=== PATIENT | male | born 1995 ===

== ENCOUNTER 2020-10-03 11:22 | Outpatient (REF) | payer MEDICAID, SELFPAY ==
[2020-10-03 12:13] LABS: Amphetamine Screen Urine Not Detected (Not Detect); Cannabinoid Screen Urine Not Detected (Not Detect); Cocaine Screen Urine Not Detected (Not Detect); Opiate Screen Urine Not Detected (Not Detect); Phencyclidine Screen Urine Not Detected (Not Detect)
== END 2020-10-03 11:23 | disposition home or self-care (01) ==
LOC: HO.LNP 11:22
PROVIDERS: Visit Provider Internal Medicine
DX: Z02.1 Encounter for pre-employment examination (principal)
CPT/HCPCS: 80307

== ENCOUNTER 2024-06-30 09:16 | Outpatient (AMB) | payer OTHER, SELFPAY ==
[2024-06-30 09:18] VITALS: BP 129/74; PULSE 103; O2SAT 98; BMI 26.4
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
== END 2024-06-30 10:05 | disposition home or self-care (01) ==
PROVIDERS: PCP Nurse Practitioner Primary Care; Visit Provider Registered Nurse Emergency
DX: G82.20 Paraplegia, unspecified (principal); G89.4 Chronic pain syndrome; Z79.891 Long term (current) use of opiate analgesic
CPT/HCPCS: 99204; G2211

== ENCOUNTER → 2024-06-30 09:16 | Outpatient (BNVA) | payer OTHER, MEDICAID, SELFPAY | PROVIDERS: PCP Nurse Practitioner Primary Care; Visit Provider Registered Nurse Emergency | DX: G82.20 Paraplegia, unspecified (principal); G89.4 Chronic pain syndrome; M54.9 Dorsalgia, unspecified; F11.90 Opioid use, unspecified, uncomplicated | CPT/HCPCS: 99202 ==

== ENCOUNTER 2024-08-06 10:35 | Outpatient (REF) | payer OTHER, SELFPAY | END 2024-08-06 10:36 | disposition home or self-care (01) | LOC: HO.MRI 10:35 | PROVIDERS: PCP Nurse Practitioner Primary Care; Visit Provider Registered Nurse Emergency | DX: M54.9 Dorsalgia, unspecified (principal); G89.29 Other chronic pain | CPT/HCPCS: 72146; 72148 ==

== ENCOUNTER 2024-09-14 19:55 | Emergency (ER) | payer OTHER, SELFPAY ==
[2024-09-14 20:07] VITALS: BP 120/63; BP 140/90; PULSE 120; PULSE 92; RESP 14; TEMP 37.6; O2SAT 99; BMI 27.2
--- NOTE | 2024-09-14 20:28 | ECG_ITS ---
Test Reason : NAUSEA Blood Pressure : */* mmHG Vent. Rate : 100 BPM Atrial Rate : 100 BPM P-R Int : 120 ms QRS Dur : 102 ms QT Int : 324 ms P-R-T Axes : 42 -2 24 degrees QTcB Int : 417 ms Normal sinus rhythm Normal ECG No previous ECGs available Referred By: Generic ED Physician Electronically Signed By: RONI JOHNSON
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
--- OUTSIDE RECORDS SUMMARY | 2024-09-14 20:52 | XMS_ITS | Encounter Summary ---
Author Organization [facility] Address [address] [place] [address] Care Team Providers Care Cook Night Name Role Phone Patient, Has No Pcp Or Ref Primary Care Provider Unavailable Encounter Details Date Type Department Care Team (Late st Contact Info) Description 01/14/2021 Documentation [facility] Case Management Department [address] [place] [id number] Virginia Cueto RN Social History Tobacco Use Types Packs/Day Years Used Date Smoking Tobacco: Never Smokeless Tobacco: Never Alcohol Use Standard Drinks/Week Comments Yes 0 (1 standard drink = 0.6 oz pur e alcohol) Intrmittently, not daily Sex and Gender Information Value Date Recorded Sex Assigned at Not on file Legal Sex Male 11:25 PM EDT Gender Identity Not on file Sexual Orientation Not on file documented as of this encounter Miscellaneous Notes * Plan of Care - Virginia Soares RN BSN - 01/16/2021 1:55 PM EDT Case Management Discharge note: Pertinent Clinical and medical Pt discussed in MD rounds. Pt medically cleared for dc to acute rehab per Tomasz Underwood NP. Final Discharge Plan Bed offer from [facility], [place], [place]. Pt has accepted the bed offer. Transport via ambulance scheduled for 11am. All parties notified and aware including pts mother Afshan and father LuisSr. Visitor policy relayed to pts mother and father and both verbalized understanding. Discs/imagessent with pt in green envelope per [facility] request. Discharge summary faxed to [place] [phone] per [facility] request. * Plan of Care - Virginia Cueto RN - 01/14/2021 4:48 PM EDT Case Management Continued Stay Review: Pertinent Clinical impacting hospitalization, level of care update, if indicated Pt discussed in MDR. Per Axel Underwood NP, pt should be ready to be D/C'd tomorrow. IVC removal today. Discharge Planning [facility]. CM to follow. documented in this encounter Plan of Treatment Not on file documented as of this encounter Visit Diagnoses Not on filedocumented in this encounter Care Teams Cook Night Relationship Specialty Start Date End Date Patient, Has No Pcp Or Ref DO NOT EDIT THIS RECORD VIA PROVIDER ON THE FLY PCP - General Film Writer 03/19/21 documented as of this encounter
--- OUTSIDE RECORDS SUMMARY | 2024-09-14 20:52 | XMS_ITS | Clinical Summary ---
Author Organization [facility] Address [address] [place] [address] Care Team Providers Care Industrial Garage Servicer Name Role Phone Unknown Primary Care Provider [phone] Social History Tobacco Use Types Packs/Day Years Used Date Smoking Tobacco: Never Assessed Sex and Gender Information Value Date Recorded Sex Assigned at Not on file Gender Identity Not on file Sexual Orientation Not on file Plan of Treatment Health Maintenance Due Date Last Done Comments Hepatitis C Virus Screening 1995 HIV Screening 11/30/2008 DTaP/Tdap/Td Vaccines (1 - Tdap) 11/30/2014 Hepatitis B Vaccines (1 of 3 - 19+ 3-dose series) 11/30/2014 Influenza Vaccine 03/16/2024 COVID-19 Vaccine (2023-2 5 season) 2024 HPV Vaccines Aged Out No longer eligi ble based on patient's age to complete this topic Pneumococcal Vaccine: Pediat grant (0-5 Years) and At-Risk Patients (6 to 49 Years) Aged Out No longer eligible b ased on patient's age to complete this topic Care Teams Industrial Garage Servicer Relationship Specialty Start Date End Date Unknown Unknow Provider Address PCP - General 12/28/20
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
--- OUTSIDE RECORDS SUMMARY | 2024-09-14 20:52 | XMS_ITS | Referral Summary ---
Author Organization [facility] Address [address] [place] [address] Care Team Providers Care Welt Cutter Name Role Phone Patient, Has No Pcp [...] 12/29/2020 7:12 AM EDT Plan of Treatment Not on file Medical Devices Implanted Type Area Audience Coordinator Device Identifier Shelf Expiration Date Model / Serial / Lot Matrix Graft Dural Substitute [id number] Duragen - [id number] Implanted:Qty: 1 on 12/29/2020 by Raza Robison MD at [facility] Graft N/A: Back [employer] 03/15/2023 [id number] / / [id number] Matrix Graft Dural Substitute 2lbj3fm Duragen - [id number] Implanted:Qty: 1 on 12/29/2020 by Raza Robison MD at [facility] Graft N/A: Back [employer] 03/15/2023 UC4100 / / [id number] Filter Vena Cava Femoral With Navalign Delivery 30iii62fl Celec - [id number] Implanted:Qty: 1 on 12/30/2020 by Remberto De La Rosa MD at [facility] IVC Filter N/A: Vein [employer] [id number] 12/19/2023 [id number] / / [id number] Harshad Spinal Precut Hex End Titanium 5.3qsg642ju Expedium - [id number] Implanted:Qty: 1 on 12/29/2020 by Raza Robison MD at [facility] Implant N/A: Spine Lumbar DEPUY 12/29/2021 1797-62 -480 / / Connector Spinal Medial Thoracolumbar Harshad Titanium Size A5 5.0rwg69-44dj Expedium Sfx - [id number] Implanted:Qty: 1 on 12/29/2020 by Raza Robison MD at [facility] Implant N/A: Back DEPUY 12/29/2021 1894-01 -405 / / Plate Humeral Distal Extra-Articular Lcp Stainless Steel Left 6 Hole 3.5xju219oo - [id number] Implanted:Qty: 1 on 01/07/2021 by Alessandra Manzo MD at [facility] Plate Left: Humerus DEPUY [employer] SALES 02.104. 026 / / Screw Spinal Pedicle Polyaxial Titanium 5.0uhz61tg Expedium 5.5 - [id number] Implanted:Qty: 2 on 12/29/2020 by Raza Robison MD at [facility] Screw N/A: Spine Thoracic DEPUY 12/29/2021 1797-12 -540 / / Screw Set Single Innie Titanium 5.6edz60zi Expedium - [id number] Implanted:Qty: 4 on 12/29/2020 by Raza Robison MD at [facility] Screw N/A: Spine Thoracic DEPUY 12/29/20211796-09000 / / Screw Set Single Innie Titanium 5.4tdy10lr Expedium - [id number] Implanted:Qty: 4 on 12/29/2020 by Raza Robison MD at [facility] Screw N/A: Spine Lumbar DEPUY 12/29/20211796-09000 / / Screw Spinal Pedicle Polyaxial Titanium 6.4fye73nz Expedium 5.5 - [id number] Implanted:Qty: 2 on 12/29/2020 by Raza Robison MD at [facility] Screw N/A: Spine Lumbar DEPUY 12/29/20211797-07650 / / Screw Spinal Pedicle Polyaxial Titanium 7.9suw49ef Expedium 5.5 - [id number] Implanted:Qty: 2 on 12/29/2020 by Raza Robison MD at [facility] Screw N/A: Spine Lumbar DEPUY 12/29/20211797-07750 / / Screw Spinal Pedicle Polyaxial Titanium 6.7tbl99ey Expedium 5.5 - [id number] Implanted:Qty: 2 on 12/29/2020 by Raza Robison MD at [facility] Screw N/A: Spine Thoracic DEPUY 12/29/20211797-07640 / / Screw Cortex Self-Tapping Stainless Steel 3.5zqg19im - [id number] Implanted:Qty: 1 on 01/07/2021 by Alessandra Manzo MD at [facility] Screw Left: Humerus DEPUY [employer] SALES 204.832 / / Screw Cortex Self-Tapping Stainless Steel 3.6lwx02ax - [id number] Implanted:Qty: 2 on 01/07/2021 by Alessandra Manzo MD at [facility] Screw Left: Humerus DEPUY [employer] SALES 204.826 / / Screw Cortex Self-Tapping Stainless Steel 3.8lzc17qo - [id number] Implanted:Qty: 4 on 01/07/2021 by Alessandra Manzo MD at [facility] Screw Left: Humerus DEPUY [employer] SALES 204.828 / / Screw Cortex Self-Tapping Stainless Steel 3.5zoc96wr - [id number] Implanted:Qty: 1 on 01/07/2021 by Alessandra Manzo MD at [facility] Screw Left: Humerus DEPUY [employer] SALES 204.830 / / Ic Graft Chamber Dbm 10cc - [id number] Implanted:Qty: 1 on 12/29/2020 by Raza Robison MD at [facility] Tissue N/A: Back LIFENET [id number] 03/15/2022 [id number] / / [id number] Ic Graft Chamber Dbm 10cc - [id number] Implanted:Qty: 1 on 12/29/2020 by Raza Robison MD at [facility] Tissue N/A: Back LIFENET [id number] 03/15/2022 [id number] / / [id number] Mix Demineralized Bone Matrix 10cc Dbx - [id number] Implanted:Qty: 1 on 12/29/2020 by Raza Robison MD at [facility] Tissue N/A: Back MUSCULOSKELETAL TRANSPLANT FND 07/23/2022 [id number] / / [id number] Ic Graft Chamber Dbm 10cc - [id number] Implanted:Qty: 1 on 12/29/2020 by Raza Robison MD at [facility] Tissue N/A: Back LIFENET 03/02/2022 [id number] / / [id number] Putty [place] 10cc - [id number] Implanted:Qty: 1 on 12/29/2020 by Raza Robison MD at [facility] Tissue N/A: Back Medtronic 10/01/2023 [id number] / / [id number] Insurance [facility] Advance Directives Documents on File Type Date Recorded Patient Osteopathic Medicine Teacher Expl anation Health Care Proxy 12/29/2020 2:13 PM 12-29 * Full Code (Latest Code Status on File) Date Activated Date Inactivated Comments 12/28/2020 2:33 AM 01/16/2021 1:51 PM Healthcare Agents on File Name Relationship Healthcare Agent Relationship Communication Mya Lock Relative Health Care Agent Care Teams Welt Cutter Relationship Specialty Start Date End Date Patient, Has No Pcp Or Ref DO NOT EDIT THIS RECORD VIA PROVIDER ON THE FLY PCP - General Magnetometer Operator 03/19/21
--- NOTE | 2024-09-14 21:06 | PC.NURSE ---
pt biba from home pt placed on cardiac nurse practitioner given call mclean orders placed by telly ruiz awaiting to be seen by ed provider
[2024-09-14 21:20] LABS: MANUAL DIFF FLAG NO
[2024-09-14 21:23] LABS: Basophils Percent Auto 0.2 % (0-2); Hematocrit 44.4 % (42.0-52.0); Hemoglobin 15.1 g/dl (14.0-18.0); Imm Gran Abs Auto 0.05 X10*3/uL (0.00-0.03); Imm Gran Pct Auto 0.4 % (0.0-0.4); Lymphocytes Absolute Auto 0.5 X10*3/uL (1.2-4.9); Lymphocytes Percent Auto 4.2 % (20-40); Mean Corpuscular Hemoglobin 30.9 pg (27.0-33.0); Mean Corpuscular Volume 90.8 fL (80.0-98.0); Mean Platelet Volume 9.4 fL (9.4-12.4); Monocytes Absolute Auto 0.8 X10*3/uL (0.1-1.2); Monocytes Percent Auto 5.9 % (2-11); Neutrophils Absolute Auto 11.5 x10*3/uL (2.0-8.3); Neutrophils Percent Auto 89.3 % (45-73); Platelet Count 235 X10*3/uL (160-400); Red Blood Count 4.89 X10*6/uL (4.60-5.80); Red Cell Distribution Width 11.5 % (11.0-16.0); White Blood Count 12.8 X10*3/uL (4.8-10.8)
[2024-09-14 21:37] LABS: Alanine Aminotransferase 22 U/L (0-40); Albumin Level 4.5 g/dL (3.5-5.0); Alkaline Phosphatase 96 U/L (39-117); Anion Gap 16 (12-20); Aspartate Amino Transferase 21 U/L (5-37); Bilirubin Direct 0.2 mg/dL (0.0-0.5); Bilirubin Total 0.6 mg/dL (0.0-1.0); Blood Urea Nitrogen 12 mg/dL (9-16); Calcium 9.5 mg/dL (8.4-10.2); Carbon Dioxide 22 mmol/L (22-29); Chloride 108 mmol/L (96-108); Creatinine Clr Calc Pharmacy 177.5; Estimated Glomerular Filt Rate > 60; Glucose Random 96 mg/dL (60-115); Lipase 7 U/L (8-78); Magnesium 1.9 mg/dL (1.6-2.6); Potassium 3.5 mmol/L (3.3-5.1); Sodium 142 mmol/L (135-145); Total Protein 7.9 g/dL (6.5-8.0)
[2024-09-14 22:00] LABS: Influenza A PCR NEGATIVE (Negative); Influenza B PCR NEGATIVE (Negative); Resp Syncy Virus RNA Qual PCR NEGATIVE (Negative); SARS COV2 PCR INHOUSE NEGATIVE (Negative)
[2024-09-14 22:02] VITALS: BP 125/74; PULSE 102; RESP 13; TEMP 37.4; O2SAT 98
--- NOTE | 2024-09-14 22:12 | ED_ITS ---
HPI - Nausea/Vomiting/Diarrhea General Chief complaint: Nausea/Vomiting/Diarrhea Stated complaint: n/v explosive stools, weakness, paralyzed Time Seen by Provider: 09/14/24 22:03 Source: patient Mode of arrival: ambulatory Limitations: no limitations History of Present Illness ED Provider: HPI Narrative: Patient is paraplegic from T8 injury comes here for nausea vomiting diarrhea started earlier today no upper respiratory symptoms patient has had about 8-10 watery stools and 5 or 6 vomiting no bad food intake no fever does have chills Related Data Home Medications ?Medication ?Instructions ?Recorded ?Confirmed duloxetine 30 mg capsule,delayed 30 mg PO BID 06/30/24 06/30/24 release gabapentin 400 mg capsule 400 mg PO TID 06/30/24 06/30/24 methenamine hippurate 1 gram tablet 1 g PO BID 06/30/24 06/30/24 omeprazole 20 mg capsule,delayed 20 mg PO DAILY 06/30/24 06/30/24 release oxycodone 5 mg tablet 5 mg PO BID PRN 06/30/24 06/30/24 tizanidine 2 mg capsule 2 mg PO TID PRN 06/30/24 06/30/24 Previous Rx's ?Medication ?Instructions ?Recorded loperamide 2 mg tablet (Imodium 2 mg PO Q6H PRN loose stool #10 09/15/24 A-D) tabs ondansetron 4 mg disintegrating 4 mg PO Q6-8H PRN nausea and 09/15/24 tablet vomiting #7 tabs Allergies Allergy/AdvReac Type Severity Reaction Status Date / Time No Known Allergies Allergy Verified 09/14/24 20:22 Review of Systems 2 Review of Systems: Yes all other systems are reviewed and are negative PMFSH Past Medical History Medical History GERD (gastroesophageal reflux disease) Social History Social History Smoked in Last 30 Days: Yes Use of substances other than those prescribed or required for medical reasons: No Substance Use Type: Marijuana Advance Directives: No Advance Directives Information Provided: Yes Do you have a plan to hurt others: No Plan Physical Exam 2 Vital Signs: Vital Signs: Last Vital Signs Temp 99.0 F 09/15/24 02:00 Pulse 97 09/15/24 02:00 Resp 12 09/15/24 02:00 BP 123/73 09/15/24 02:00 Pulse Ox 99 09/15/24 02:00 O2 Del Method Room Air 09/15/24 02:00 BMI result Body Mass Index 27.2 Appearance: Alert. Oriented X3. No acute distress. Eyes: No pallor or icterus ENT: Pharynx normal. Oral Mucosa moist Neck: Normal inspection. Neck supple. CVS: Normal heart rate and rhythm. Pulses normal. Respiratory: No respiratory distress. Equal air entry bilateral, no wheezing/rales/rhonchi Abdomen: Soft and nontender. Bowel sounds are present, no mass palpable, no CVA tenderness Skin: Skin warm and dry. Normal skin color. Normal skin turgor. Extremities: No lower extremity edema. No calf tenderness Neuro: Oriented X 3. Paraplegic Medications Administered Discontinued Medications Generic Name Dose Route Start Last Admin Trade Name Freq PRN Reason Stop Dose Admin Sodium Chloride 1,000 mls @ 999 mls/hr 09/14/24 22:03 09/15/24 00:00 Ns IV 09/14/24 23:03 Infused .Q1H1M ONE Infusion Loperamide HCl 4 mg 09/14/24 22:09 09/14/24 22:29 Loperamide Hcl 2 Mg Capsule PO 09/14/24 22:10 4 mg ONCE ONE Administration Morphine Sulfate 4 mg 09/14/24 22:09 09/14/24 22:28 Morphine Sulfate 4 Mg/Ml Cartridge IVPUSH 09/14/24 22:10 4 mg ONCE ONE Administration Protocol Ondansetron HCl 4 mg 09/14/24 22:09 09/14/24 22:28 Ondansetron Hcl 4 Mg/2 Ml Vial IVPUSH 09/14/24 22:10 4 mg ONCE ONE Administration Medical Decision Making Medical Decision Making MDM Narrative: Patient's gastroenteritis improved after IV fluids and your medication urine was negative for UTI Lab Data MDM Lab Attestation statement: I reviewed the patient's lab results. 09/14/24 21:16 09/14/24 21:16 Labs: Lab Results 09/14/24 09/14/24 09/15/24 Range/Units 21:15 21:16 00:41 WBC 12.8 H (4.8-10.8) X10*3/uL RBC 4.89 (4.60-5.80) X10*6/uL Hgb 15.1 (14.0-18.0) g/dl Hct 44.4 (42.0-52.0) % MCV 90.8 (80.0-98.0) fL MCH 30.9 (27.0-33.0) pg MCHC 34.0 (31.0-36.0) g/dl RDW 11.5 (11.0-16.0) % Plt Count 235 (160-400) X10*3/uL MPV 9.4 (9.4-12.4) fL Immature Gran % (Auto) 0.4 (0.0-0.4) % Neut % (Auto) 89.3 H (45-73) % Lymph % (Auto) 4.2 L (20-40) % [place] % (Auto) 5.9 (2-11) % Eos % (Auto) 0.0 (0-4) % Baso % (Auto) 0.2 (0-2) % Lymph # (Auto) 0.5 L (1.2-4.9) X10*3/uL [place] # (Auto) 0.8 (0.1-1.2) X10*3/uL Eos # (Auto) 0.0 (0.0-0.4) X10*3/uL Baso # (Auto) 0.0 (0.0-0.2) X10*3/uL Abs Immat Gran (auto) 0.05 H (0.00-0.03) X10*3/uL Absolute Neuts (auto) 11.5 H (2.0-8.3) x10*3/uL Absolute Nucleated RBC 0.000 (0.0-0.012) X10*3/uL Nucleated RBC % (auto) 0.0 (0.0-0.2) /100WBC Sodium 142 (135-145) mmol/L Potassium 3.5 (3.3-5.1) mmol/L Chloride 108 (96-108) mmol/L Carbon Dioxide 22 (22-29) mmol/L Anion Gap 16 (12-20) BUN 12 (9-16) mg/dL Creatinine 0.70 (0.5-1.4) mg/dL Estim Creat Clear Calc 177.5 Estimated GFR > 60 Random Glucose 96 (60-115) mg/dL Calcium 9.5 (8.4-10.2) mg/dL Magnesium 1.9 (1.6-2.6) mg/dL Total Bilirubin 0.6 (0.0-1.0) mg/dL Direct Bilirubin 0.2 (0.0-0.5) mg/dL AST 21 (5-37) U/L ALT 22 (0-40) U/L Alkaline Phosphatase 96 (39-117) U/L Total Protein 7.9 (6.5-8.0) g/dL Albumin 4.5 (3.5-5.0) g/dL Lipase 7 L (8-78) U/L Urine Color Yellow Urine Appearance Clear Urine pH 5.5 (5.0-9.0) Ur Specific [place] >= 1.030 H (1.005-1.025) Urine Protein 30 (1+) H (Neg-Trace) mg/dL Urine Glucose (UA) Negative (Negative) mg/dL Urine Ketones 15 (Negative) mg/dL Urine Blood Negative (Negative) Urine Nitrite Negative (Negative) Ur Leukocyte Esterase Trace H (Negative) Urine RBC 0-2 (0-2) /HPF Urine WBC 6-10 H (0-5) /HPF Ur Squamous Epith Cells 3-5 (0-2) /HPF Urine Bacteria None Seen (None Seen) Hyaline Casts 0-2 (0-2) /LPF Influenza Type A (PCR) NEGATIVE (Negative) Influenza Type B (PCR) NEGATIVE (Negative) RSV RNA Qual (PCR) NEGATIVE (Negative) SARS-CoV-2 RNA (RT-PCR) NEGATIVE (Negative) Discharge Plan Discharge Clinical Impression: Gastroenteritis Patient Disposition: Home, Self-Care Instructions: Gastroenteritis (ED) Additional Instructions: Drink plenty of fluids Medicine for nausea as prescribed Imodium for severe diarrhea Follow with PCP if not better Prescriptions: New ondansetron 4 mg tablet,disintegrating 4 mg PO Q6-8H PRN (Reason: nausea and vomiting) Qty: 7 0RF loperamide [Imodium A-D] 2 mg tablet 2 mg PO Q6H PRN (Reason: loose stool) Qty: 10 0RF No Action gabapentin 400 mg capsule 400 mg PO TID tizanidine 2 mg capsule 2 mg PO TID PRN duloxetine 30 mg capsule,delayed release(DR/EC) 30 mg PO BID oxycodone 5 mg tablet 5 mg PO BID PRN omeprazole 20 mg capsule,delayed release(DR/EC) 20 mg PO DAILY methenamine hippurate 1 gram tablet 1 g PO BID Interventions: ED Discharge Assessment Last Done: 09/15/24 02:00 Discharge Date/Time: 09/15/24 02:01 Print Language: Tamazight
[2024-09-14] MEDS: ondansetron HCL 4 MG/2 ML VIAL IVPUSH (22:28)
[2024-09-14] MEDS: Morphine Sulfate 4 MG/ML CARTRIDGE IVPUSH (22:28)
[2024-09-14] MEDS: 0.9 % Sodium Chloride 1,000 ML 999 ML IV (22:29)
[2024-09-14] MEDS: Loperamide HCl 2 MG CAPSULE 4 MG PO (22:29)
[2024-09-15 00:03] VITALS: BP 125/74; PULSE 91; RESP 15; TEMP 37.3; O2SAT 97
--- NOTE | 2024-09-15 00:46 | PC.NURSE ---
pt straight cath self urine sent to lab pt assisted with brief change pt calm and cooperative reports no pain denies n/v/d
[2024-09-15 00:48] LABS: Appearance Urine Clear; Color Urine Yellow; Glucose Urine UA Negative (Negative); Leukocyte Esterase Urine Trace (Negative); Nitrite Urine Negative (Negative); PH 5.5 (5.0-9.0); Specific Gravity - Urine >= 1.030 (1.005-1.025); UMIC TRIGGER UACC YES; Urine Blood Negative (Negative); Urine Ketones 15 mg/dL (Negative); Urine Protein 30 (1+) mg/dL (Neg-Trace)
[2024-09-15 01:03] LABS: Bacteria Urine None Seen (None Seen); Hyaline Casts Urine 0-2 /LPF (0-2); RBC Urine 0-2 /HPF (0-2); UACC Culture Trigger YES
[2024-09-15 01:57] VITALS: BP 123/73; PULSE 97; RESP 12; TEMP 37.2; O2SAT 99
--- NOTE | 2024-09-15 01:58 | PC.NURSE ---
iv removed at discharge pt denies pain denies n/v/d pt assisted into wheelchair and into brothers car at discharge verbalized understanding of discharge plan
[2024-09-15 02:00] VITALS: BP 123/73; PULSE 97; RESP 12; TEMP 37.2; O2SAT 99
== END 2024-09-15 02:01 | disposition home or self-care (01) ==
PROVIDERS: Physician Assistant Medical; Emergency Provider Internal Medicine
DX: K52.9 Noninfective gastroenteritis and colitis, unspecified (principal); R11.2 Nausea with vomiting, unspecified; Z03.818 Encounter for observation for suspected exposure to other biological agents ruled out; G82.20 Paraplegia, unspecified; G89.4 Chronic pain syndrome; Z79.891 Long term (current) use of opiate analgesic; Z79.899 Other long term (current) drug therapy
CPT/HCPCS: 0241U; 80048; 80076; 81001; 81003; 83690; 83735; 85025; 87086; 93005; 96361; 96374; 96375; 99284; 99285; J2270; J2405

== ENCOUNTER → 2024-09-14 20:28 | Outpatient (BNV) | payer OTHER, SELFPAY | PROVIDERS: Emergency Provider Internal Medicine; Visit Provider Internal Medicine | DX: R11.0 Nausea (principal) | CPT/HCPCS: 93010 ==

== ENCOUNTER 2024-10-30 11:40 | Outpatient (AMB) | payer OTHER, SELFPAY ==
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
[2024-10-30 12:10] VITALS: BP 125/71; PULSE 109; O2SAT 99
--- OUTSIDE RECORDS SUMMARY | 2024-10-30 13:54 | XMS_ITS | Clinical Summary ---
Author Organization [facility] Address [address] [place] [address] Care Team Providers Care Manager Harbor Name Role Phone Unknown Primary Care Provider [phone] Social History Tobacco Use Types Packs/Day Years [...] age to complete this topic Care Teams Manager Harbor Relationship Specialty Start Date End Date Unknown Unknow Provider Address PCP - General 12/28/20
--- OUTSIDE RECORDS SUMMARY | 2024-10-30 13:54 | XMS_ITS | Encounter Summary ---
Author Organization [facility] Address [address] [place] [address] Care Team Providers Care Deputy Manager Name Role Phone Patient, Has No Pcp Or Ref Primary Care Provider Unavailable Encounter Details Date Type Department Care Team (Late st Contact Info) Description 01/14/2021 Documentation [facility] Case Management Department [address] [place] [id number] Virginia Cueto RN Social History Tobacco Use [...] NP. Final Discharge Plan Bed offer from [facility], [place], [place]. Pt has accepted the bed offer. Transport via ambulance scheduled for 11am. All parties notified and aware including pts mother Afshan and father LuisSr. Visitor policy relayed to pts mother and father and both verbalized understanding. Discs/imagessent with pt in green envelope per [facility] request. Discharge summary faxed to [facility] [phone] per [facility] request. * Plan of Care - Virginia Cueto RN - 01/14/2021 4:48 PM EDT Case Management Continued Stay Review: Pertinent Clinical impacting hospitalization, level of care update, if indicated Pt discussed in MDR. Per Axel Underwood NP, pt should be ready to be D/C'd tomorrow. IVC removal today. Discharge Planning [facility]. CM to follow. documented in this encounter Plan of Treatment Not on file documented as of this encounter Visit Diagnoses Not on filedocumented in this encounter Care Teams Deputy Manager Relationship Specialty Start Date End Date Patient, Has No Pcp Or Ref DO NOT EDIT THIS RECORD VIA PROVIDER ON THE FLY PCP - General Radiography Technician 03/19/21 documented as of this encounter
--- OUTSIDE RECORDS SUMMARY | 2024-10-30 13:54 | XMS_ITS | Clinical Summary ---
Author Organization [facility] Address [address] [place] [address] Care Team Providers Care Postal Service Mail Processor Name Role Phone Patient, Has No Pcp [...] Vaccine: Pediatric (0-5 Years) and At-Risk Patients (6-50 Years) Aged Out No longer eligible based on patient's age to complete this topic Medical Devices Implanted Type Area Custom Marine Canvas Fabricator Device Identifier Shelf Expiration Date Model / Serial / Lot Matrix Graft Dural Substitute [id number] Duragen - [id number] Implanted:Qty: 1 on 12/29/2020 by Raza Robison MD at [facility] Graft N/A: Back [employer] 03/15/2023 [id number] / / [id number] Matrix Graft Dural Substitute 5gns1td Duragen - [id number] Implanted:Qty: 1 on 12/29/2020 by Raza Robison MD at [facility] Graft N/A: Back [employer] 03/15/2023 [id number] / / [id number] Vena Cava Femoral With Navalign Delivery [id number] Celec - [id number] Implanted:Qty: 1 on 12/30/2020 by Remberto De La Rosa MD at [facility] IVC Filter N/A: Vein [employer] [id number] 12/19/2023 [id number] / / [id number] Harshad Spinal Precut Hex End Titanium 5.4qbi018la Expedium - [id number] Implanted:Qty: 1 on 12/29/2020 by Raza Robison MD at [facility] Implant N/A: Spine Lumbar DEPUY 12/29/2021 1797-62 -480 / / Connector Spinal Medial Thoracolumbar Harshad Titanium Size A5 5.3lzn61-64wo Expedium Sfx - [id number] Implanted:Qty: 1 on 12/29/2020 by Raza Robison MD at [facility] Implant N/A: Back DEPUY 12/29/2021 1894-01 -405 / / Plate Humeral Distal Extra-Articular Lcp Stainless Steel Left 6 Hole 3.2ztp376xd - [id number] Implanted:Qty: 1 on 01/07/2021 by Alessandra Manzo MD at [facility] Plate Left: Humerus DEPUY SYNTHES SALES 02.104. 026 / / Screw Spinal Pedicle Polyaxial Titanium 5.2bmd22ou Expedium 5.5 - [id number] Implanted:Qty: 2 on 12/29/2020 by Raza Robison MD at [facility] Screw N/A: Spine Thoracic DEPUY 12/29/20211797-07540 / / Screw Set Single Innie Titanium 5.2ocv33sr Expedium - [id number] Implanted:Qty: 4 on 12/29/2020 by Raza Robison MD at [facility] Screw N/A: Spine Thoracic DEPUY 12/29/20211796-09000 / / Screw Set Single Innie Titanium 5.6bzm29bt Expedium - [id number] Implanted:Qty: 4 on 12/29/2020 by Raza Robison MD at [facility] Screw N/A: Spine Lumbar DEPUY 12/29/20211796-09000 / / Screw Spinal Pedicle Polyaxial Titanium 6.7nba06dn Expedium 5.5 - [id number] Implanted:Qty: 2 on 12/29/2020 by Raza Robison MD at [facility] Screw N/A: Spine Lumbar DEPUY 12/29/20211797-07650 / / Screw Spinal Pedicle Polyaxial Titanium 7.9ush75if Expedium 5.5 - [id number] Implanted:Qty: 2 on 12/29/2020 by Raza Robison MD at [facility] Screw N/A: Spine Lumbar DEPUY 12/29/20211797-07750 / / Screw Spinal Pedicle Polyaxial Titanium 6.0qel27jr Expedium 5.5 - [id number] Implanted:Qty: 2 on 12/29/2020 by Raza Robison MD at [facility] Screw N/A: Spine Thoracic DEPUY 12/29/2021 1797-12 -640 / / Screw Cortex Self-Tapping Stainless Steel 3.6mun31bf - [id number] Implanted:Qty: 1 on 01/07/2021 by Alessandra Manzo MD at [facility] Screw Left: Humerus DEPUY [employer] SALES 204.832 / / Screw Cortex Self-Tapping Stainless Steel 3.1fjz59iz - [id number] Implanted:Qty: 2 on 01/07/2021 by Alessandra Manzo MD at [facility] Screw Left: Humerus DEPUY SY[employer]ES SALES 204.826 / / Screw Cortex Self-Tapping Stainless Steel 3.7ibj16gl - [id number] Implanted:Qty: 4 on 01/07/2021 by Alessandra Manzo MD at [facility] Screw Left: Humerus DEPUY [employer] SALES 204.828 / / Screw Cortex Self-Tapping Stainless Steel 3.1lsu54sj - [id number] Implanted:Qty: 1 on 01/07/2021 by Alessandra Manzo MD at [facility] Screw Left: Humerus DEPUY SYNTHES Sprinkle 204.830 / / Ic Graft Chamber Dbm 10cc - [id number] Implanted:Qty: 1 on 12/29/2020 by Raza Robison MD at [facility] Tissue N/A: Back [employer] [id number] 03/15/2022 [id number] / / [id number] Ic Graft Chamber Dbm 10cc - [id number] Implanted:Qty: 1 on 12/29/2020 by Raza Robison MD at [facility] Tissue N/A: Back L[employer]ET [id number] 03/15/2022 [id number] / / [id number] Mix Demineralized Bone Matrix 10cc Dbx - [id number] Implanted:Qty: 1 on 12/29/2020 by Raza Robison MD at [facility] Tissue N/A: Back MUSCULOSKELETAL TRANSPLANT FND 07/23/2022 [id number] / / [id number] Ic Graft Chamber Dbm 10cc - [id number] Implanted:Qty: 1 on 12/29/2020 by Raza Robison MD at [facility] Tissue N/A: Back LIFENET 03/02/2022 [id number] / / [id number] Joseph Osborn 10cc - [id number] Implanted:Qty: 1 on 12/29/2020 by Raza Robison MD at [facility] Tissue N/A: Back Med[employer]onic 10/01/2023 [id number] / / [id number] Insurance [facility] Advance Directives Documents on File Type Date Recorded Patient Vault Installer Expl anation Health Care Proxy 12/29/2020 2:13 PM 12-29 * Full Code (Latest Code Status on File) Date Activated Date Inactivated Comments 12/28/2020 2:33 AM 01/16/2021 1:51 PM Healthcare Agents on File Name Relationship Healthcare Agent Relationship Communication Mya Lock Relative Health Care Agent Care Teams Postal Service Mail Processor Relationship Specialty Start Date End Date Patient, Has No Pcp Or Ref DO NOT EDIT THIS RECORD VIA PROVIDER ON THE FLY PCP - General Data Librarian 03/19/21
--- OUTSIDE RECORDS SUMMARY | 2024-10-30 13:54 | XMS_ITS ---
Author Name Germaine ANTHONYNatividad Address [address] [place] [address] Phone [phone] Organization [facility] Care Team Providers Care Forestry Technical Officer Name Role Phone Natividad Herron Unavailable [phone] Unavailable Unavailable Unavailable Reason for Referral Not [...] Active 07-08-08 N/A [facility] Active 2024-05-22 N/A Spinal cord injury at T7-T12 level with spinal cord lesionParaplegia Active 2023-07-23 N/A Neuropathy Active 2023-07-23 N/A Encounters Encounters Type Facility Date of Service Diagnosis/Co mplaint New patient, 30-44min 1 stable chronic or 2 minor; add modifier 95 for video, modifier 93 for [facility] ([place]) 07/23/2023 Gastro-esophageal reflux disease without esophagitisPolyneuropathy, unspecifiedUnspecified injury at T7-t10 level of thoracic spinal cord, sequelaDependence on wheelchair New patient, 30-44min 1 stable chronic or 2 minor; add modifier 95 for video, modifier 93 for [facility] ([place] 07/23/2023 New patient, 30-44min 1 stable chronic or 2 minor; add modifier 95 for video, modifier 93 for phone [facility] [place] 07[place]20[place] New patient, 30-44min 1 stable chronic or 2 minor; add modifier 95 for video, modifier 93 for phone [facility] [place] 07[place]/20[place] New patient, 30-44min 1 stable chronic or 2 minor; add modifier 95 for video, modifier 93 for phone [facility] [place] 07/[place]/2023 New patient, 30-44min 1 stable chronic or 2 minor; add modifier 95 for video, modifier 93 for phone [facility] [place] 07/23/2023 New patient, 30-44min 1 stable chronic or 2 minor; add modifier 95 for video, modifier 93 for phone [facility] [place] 07/[place]/2023 New patient, 30-44min 1 stable chronic or 2 minor; add modifier 95 for video, modifier 93 for phone [facility] [place] 07/23/2023 New patient, 30-44min 1 stable chronic or 2 minor; add modifier 95 for video, modifier [address] [facility] [place] 07[place]20[place] Estab. patient 30-39min; chronic exacerbation, 2 stable chronic or 1 acute illness add add modifier 95 for video, (do not use for phone, instead use [id number]) [facility] ([place] 05[place]22/2024 Gastro-esophageal reflux disease without esophagitisParaplegia, unspecifiedPolyneuropathy, unspecifiedUnspecified injury to unspecified level of lumbar spinal cord, sequelaOther problems related to medical facilities and other health careDependence on wheelchair Estab. patient 30-39min; chronic exacerbation, 2 stable chronic or 1 acute illness add add modifier 95 for video, (do not use for phone, instead use [id number]) [facility] [place] 05[place] Estab. patient 30-39min; chronic exacerbation, 2 stable chronic or 1 acute illness add add modifier 95 for video, (do not use for phone, instead use 29356-20) [facility] ([place] 05[place] Estab. patient 30-39min; chronic exacerbation, 2 stable chronic or 1 acute illness add add modifier 95 for video, (do not use for phone, instead use 04053-59) [facility] [place] Estab. patient 30-39min; chronic exacerbation, 2 stable chronic or 1 acute illness add add modifier 95 for video, (do not use for phone, instead use 44912-04) [facility] [place] Estab. patient 30-39min; chronic exacerbation, 2 stable chronic or 1 acute illness add add modifier 95 for video, (do not use for phone, instead use 10110-45) [facility] [place] Estab. patient 30-39min; chronic exacerbation, 2 stable chronic or 1 acute illness add add modifier 95 for video, (do not use for phone, instead use 64007-62) [facility] [place] Estab. patient 30-39min; chronic exacerbation, 2 stable chronic or 1 acute illness add add modifier 95 for video, (do not use for phone, instead use 89114-10) [facility] [place] Estab. patient 30-39min; chronic exacerbation, 2 stable chronic or 1 acute illness add add modifier 95 for video, (do not use for phone, instead use 17998-22) [facility] [place] Estab. patient 30-39min; chronic exacerbation, 2 stable chronic or 1 acute illness add add modifier 95 for video, (do not use for phone, instead use 94261-08) [facility] ([place] 05[place]/20[place] Estab. patient 30-39min; chronic exacerbation, 2 stable chronic or 1 acute illness add add modifier 95 for video, (do not use for phone, instead use 25775-55) [facility] [place] 05[place]/2024 Vital Signs Date of Collection Vitals [...] tive Time Current Smoking Status Never smoker 2024-10-14 7 Sex Male History of Procedures Procedures Service Procedure code Service date Servicing provider Phone# New patient, 30-44min 1 stable chronic or 2 minor; add modifier 95 for video, modifier 93 for phone [id number] 2023-07-23 No Data Available No Data Available [...] (do not use for phone, instead use [id number]) [id number] 2024-05-22 No Data Available No Data Availa [...] Available Functional Status Functional Category Effective Dates CORPORATE WELLNESS COORDINATOR assists with cooking, cl eaning, laundry, showering [...] with your PCP.4. Discussed how to contact [facility] via phone or tablet. Health Concerns Date Concern 2024-05-22 Visit completed jose sinclair audio and video. Patient/Guardian agreed to visit via telehealth. Today, patient has chief complaint of: follow up care and comprehensive review.Reviewed Allergies, Medications, Active Medical conditions, past medical/surgical history, Social history. 2024-05-22 ACP: denies 2024-05-22 Most recent hospital stay(s) or ER visit(s) and precipitating factors: 20222024-05-22 Open HEDIS Measure angelica fitzgerald:
--- OUTSIDE RECORDS SUMMARY | 2024-10-30 13:54 | XMS_ITS | Referral Summary ---
Author Organization [facility] Address [address] [place] [address] Care Team Providers Care Coke Drawer Name Role Phone Patient, Has No Pcp [...] on file Medical Devices Implanted Type Area Flat Sorter Processor Device Identifier Shelf Expiration Date Model / Serial / Lot Matrix Graft Dural Substitute [id number] Duragen - [id number] Implanted:Qty: 1 on 12/29/2020 by Raza Robison MD at [facility] Graft N/A: Back [employer] 03/15/2023 [id number] / / [id number] Matrix Graft Dural Substitute [id number] Duragen - [id number] Implanted:Qty: 1 on 12/29/2020 by Raza Robison MD at [facility] Graft N/A: Back [employer] 03/15/2023 [id number] / / [id number] Vena Cava Femoral With Navalign Delivery 04gyo53ez Celec - [id number] Implanted:Qty: 1 on 12/30/2020 by Remberto De La Rosa MD at [facility] IVC Filter N/A: Vein [employer] [id number] 12/19/2023 [id number] / / [id number] Harshad Spinal Precut Hex End Titanium 5.3hyr871sk Expedium - [id number] Implanted:Qty: 1 on 12/29/2020 by Raza Robison MD at [facility] Implant N/A: Spine Lumbar DEPUY 12/29/2021 1797-62 -480 / / Connector Spinal Medial Thoracolumbar Harshad Titanium Size A5 5.2fab23-82ot Expedium Sfx - [id number] Implanted:Qty: 1 on 12/29/2020 by Raza Robison MD at [facility] Implant N/A: Back DEPUY 12/29/2021 1894-01 -405 / / Plate Humeral Distal Extra-Articular Lcp Stainless Steel Left 6 Hole 3.7eqo008jf - [id number] Implanted:Qty: 1 on 01/07/2021 by Alessandra Manzo MD at [facility] Plate Left: Humerus DEPUY [employer] SALES 02.104. 026 / / Screw Spinal Pedicle Polyaxial Titanium 5.5dmd08gu Expedium 5.5 - [id number] Implanted:Qty: 2 on 12/29/2020 by Raza Robison MD at [facility] Screw N/A: Spine Thoracic DEPUY 12/29/2021 1797-12 -540 / / Screw Set Single Innie Titanium 5.9rus32oz Expedium - [id number] Implanted:Qty: 4 on 12/29/2020 by Raza Robison MD at [facility] Screw N/A: Spine Thoracic DEPUY 12/29/20211796-09000 / / Screw Set Single Innie Titanium 5.6lbq59sd Expedium - [id number] Implanted:Qty: 4 on 12/29/2020 by Raza Robison MD at [facility] Screw N/A: Spine Lumbar DEPUY 12/29/20211796-09000 / / Screw Spinal Pedicle Polyaxial Titanium 6.8bvy39jy Expedium 5.5 - [id number] Implanted:Qty: 2 on 12/29/2020 by Raza Robison MD at [facility] Screw N/A: Spine Lumbar DEPUY 12/29/20211797-07650 / / Screw Spinal Pedicle Polyaxial Titanium 7.7kuq83go Expedium 5.5 - [id number] Implanted:Qty: 2 on 12/29/2020 by Raza Robison MD at [facility] Screw N/A: Spine Lumbar DEPUY 12/29/20211797-07750 / / Screw Spinal Pedicle Polyaxial Titanium 6.2wcy69px Expedium 5.5 - [id number] Implanted:Qty: 2 on 12/29/2020 by Raza Robison MD at [facility] Screw N/A: Spine Thoracic DEPUY 12/29/20211797-07640 / / Screw Cortex Self-Tapping Stainless Steel 3.6wto40im - [id number] Implanted:Qty: 1 on 01/07/2021 by Alessandra Manzo MD at [facility] Screw Left: Humerus DEPUY [employer] SAL[employer] 204.832 / / Screw Cortex Self-Tapping Stainless Steel 3.4ujr25ov - [id number] Implanted:Qty: 2 on 01/07/2021 by Alessandra Manzo MD at [facility] Screw Left: Humerus DEPUY [employer] 204.826 / / Screw Cortex Self-Tapping Stainless Steel 3.8lwh30aw - [id number] Implanted:Qty: 4 on 01/07/2021 by Alessandra Manoz MD at [facility] Screw Left: Humerus DEPUY [employer]ES 204.828 / / Screw Cortex Self-Tapping Stainless Steel 3.5cae06et - [id number] Implanted:Qty: 1 on 01/07/2021 by Alessandra Manzo MD at [facility] Screw Left: Humerus DEPUY [employer] 204.830 / / Ic Graft Chamber Dbm 10cc - [id number] Implanted:Qty: 1 on 12/29/2020 by Raza Robison MD at [facility] Tissue N/A: Back [employer] [id number] 03/15/2022 [id number] / / [id number] Ic Graft Chamber Dbm 10cc - [id number] Implanted:Qty: 1 on 12/29/2020 by Raza Robison MD at [facility] Tissue N/A: Back [employer] [id number] 03/15/2022 [id number] / / [id number] Mix Demineralized Bone Matrix 10cc Dbx - [id number] Implanted:Qty: 1 on 12/29/2020 by Raza Robison MD at [facility] Tissue N/A: Back [employer] 07/23/2022 [id number] / / [id number] Ic Graft Chamber Dbm 10cc - [id number] Implanted:Qty: 1 on 12/29/2020 by Raza Robison MD at [facility] Tissue N/A: Back [employer] 03/02/2022 [id number] / / [id number] Putty [place] 10cc - [id number] Implanted:Qty: 1 on 12/29/2020 by Raza Robison MD at [facility] Tissue N/A: Back [employer] 10/01/2023 [id number] / / [id number] Insurance [facility] Advance Directives Documents on File Type Date Recorded Patient Welder Fabricator Expl anation Health Care Proxy 12/29/2020 2:13 PM 12-29 * Full Code (Latest Code Status on File) Date Activated Date Inactivated Comments 12/28/2020 2:33 AM 01/16/2021 1:51 PM Healthcare Agents on File Name Relationship Healthcare Agent Relationship Communication Mya Lock Relative Health Care Agent Care Teams Coke Drawer Relationship Specialty Start Date End Date Patient, Has No Pcp Or Ref DO NOT EDIT THIS RECORD VIA PROVIDER ON THE FLY PCP - General [employer] 03/19/21
== END 2024-10-30 11:59 | disposition home or self-care (01) ==
LOC: HO.PMC 11:41
PROVIDERS: Visit Provider Anesthesiology
DX: G82.20 Paraplegia, unspecified (principal); G89.4 Chronic pain syndrome; Z79.891 Long term (current) use of opiate analgesic
CPT/HCPCS: 99214

== ENCOUNTER → 2024-10-30 11:40 | Outpatient (BNVA) | payer OTHER, SELFPAY | PROVIDERS: Visit Provider Anesthesiology | DX: G82.20 Paraplegia, unspecified (principal); G89.4 Chronic pain syndrome; F11.90 Opioid use, unspecified, uncomplicated | CPT/HCPCS: 99212 ==